=== PATIENT | female | born 1935 | race Caucasian/White ===

== ENCOUNTER 2018-04-17 07:30 | Inpatient (IN) ==
[2018-04-26] MEDS ORDERED: Sodium Chloride 0.9% 2 ML Flush PRN IV.FLUSH (06:13)
[2018-04-26] MEDS ORDERED: Levofloxacin 500 mg Premix Inj 500 MG/100 ML PIGGYBACK IV.SIG SCH (06:15)
[2018-04-26] MEDS ORDERED: Heparin - SQ 10,000 UNITS/ML Vial SQ SCH (06:15)
[2018-04-26] MEDS ORDERED: Chlorhexidine Gluconate 2% 1 Pack (2 Cloths) TOPICAL ONE (06:15)
[2018-04-26] MEDS ORDERED: Metoprolol Tartrate 25 MG Tablet PO ONE (06:15)
[2018-04-26] MEDS ORDERED: Lidocaine 1%/Epinephrine 1:100,000 Inj 50 ML Vial ONE (06:56)
[2018-04-26] MEDS ORDERED: Sugammadex Inj 200 MG/2 ML Vial IV.PUSH ONE (06:57)
[2018-04-26] MEDS ORDERED: Sodium Chlor 0.9% Inj 500 ML IV.SIG SCH (07:00)
[2018-04-26] MEDS ORDERED: Sodium Chlor 0.9% Inj 250 ML IV.CONT ONE (07:07)
[2018-04-26] MEDS ORDERED: Phenylephrine/NS 1000 MCG/10ML Syringe IV.PUSH ONE (07:07)
[2018-04-26] MEDS ORDERED: Lidocaine PF 1% Inj 5 ML Syringe OTHER ONE (07:07)
[2018-04-26] MEDS ORDERED: Sodium Chloride 0.9% 2 ML Flush BID IV.FLUSH SCH (09:00)
[2018-04-26] MEDS ORDERED: RESP: Albuterol Concentrated 2.5 MG/0.5 ML Neb ONE (09:06)
[2018-04-26] MEDS ORDERED: LORazepam 0.5 MG Tablet PO PRN (13:34)
[2018-04-26] MEDS ORDERED: Dextrose 50% in Water 50 ML Vial IV.PUSH PRN (13:36)
[2018-04-26] MEDS ORDERED: *Meperidine Inj 25 MG/ML Vial PERIprocedural Use ONLY ONE (13:43)
[2018-04-26] MEDS ORDERED: fentaNYL Citrate Inj 100 MCG/2 ML Ampul ONE ×2 (13:54→14:40)
[2018-04-26] MEDS ORDERED: KCL 20 mEq/D5W/NaCl 0.45% Inj 1,000 ML ONE (13:59)
[2018-04-26] MEDS ORDERED: *morphine SULFATE 4 MG/ML PERIprocedure ONLY ONE ×3 (14:50→16:36)
[2018-04-26] MEDS: KCL 20 mEq/D5W/NaCl 0.45% Inj 1,000 ML IV.CONT SCH ×2 (15:16)
--- NOTE | 2018-04-26 15:18 | P.CONCC ---
History of Present Illness Service: Critical care Consult date: 04/26/18 Requesting Physician: Belem Alonzo Reason for Consult: Post-operative care s/p ovarian tumor debulking Primary Care Provider: No Primary Care Physician Chief Complaint: None History of Present Illness: 82yF POD # 0 s/p robotic-assisted laparoscopic resection of pelvic mass, bilateral salpingoophorectomy, omentectomy, and tumor debulking. The patient has a history of pelvic mass (either primary peritoneal mass or ovarian CA), carcinomatosis, ascites, and mediastinal adenopathy of uncertain significance who has had 3 rounds of chemotherapy (Taxol, carboplatin, Abraxane) prior to surgery. She had a reported EBL of 150 cc and was extubated without difficulty post-op. I examined the patient in the PACU and she offered no complaints. She specifically denies any pain or nausea. Restoration Technician-onc physician is Dr. Alonzo, med-onc physician is Dr. Garcia. Patient is a full code. Review of Systems All other systems reviewed negative except as stated in HPI Constitutional: Denies chills, Denies fever(s) Eyes: Denies blurry vision Ears, Nose, Mouth, and Throat: Denies sore throat Cardiovascular: Denies chest pain Respiratory: Denies cough Gastrointestinal: Denies abdominal pain, Denies nausea Genitourinary: Denies pelvic pain Musculoskeletal: Denies back pain Neurologic: Denies confusion Psychiatric: Denies confusion PMFSH - History History Provided By: Patient - Medical History Medical History: Medical History (Last Reviewed 04/26/18 @ 16:27 by Verónica Rankin DO) History of chemotherapy Pneumonia Anxiety Bronchitis Carcinoma of omentum Diabetes Full dentures High cholesterol Hypothyroid Neck pain Ovarian ca Port catheter in place - Surgical History Surgical History: Surgical History (Last Reviewed 04/26/18 @ 16:27 by Verónica Rankin DO) History of bladder surgery History of cataract extraction with lens replacement Hx of appendectomy - Social History I have reviewed the patient's Social History: Yes - Tobacco History Second Hand Smoke Exposure: No Smoking Status: Former smoker - Alcohol History How Often Do You Have a Drink Containing Alcohol: Never - Substance Use History Substance History: No History of Abuse Medications and Allergies Active Medications: Active Medications Albuterol (Albuterol Neb (Chau)) 1.25 mg NEB Q6HR NEB CHAU Stop: 04/28/18 14:00 Dextrose (D50w Vial) 50 ml IV.PUSH UNSCH PRN PRN Reason: PER HYPOGLYCEMIA PROTOCOL Diphenhydramine HCl (Benadryl) 25 mg PO Q6H PRN PRN Reason: ITCHING Glucagon (Glucagon Inj) 1 mg OTHER PRN PRN PRN Reason: for Hypoglycemia Protocol Lactated Ringer's (Lr 1000 Ml Inj) 1,000 mls @ 30 mls/hr IV.SIG .Q24H PENDING SALE TO [facility] Stop: 04/27/18 06:14 Last Admin: 04/26/18 06:35 Dose: 30 mls/hr Sodium Chloride (Ns Inj) 500 mls @ 30 mls/hr IV.SIG .Q10H PENDING SALE TO [facility] Last Admin: 04/26/18 06:52 Dose: Not Given Potassium Chloride/Dextrose/Sod Cl (D5w/1/2ns + Kcl 20 Meq Inj) 1,000 mls @ 80 mls/hr IV.CONT .[id number] PENDING SALE TO [facility] Last Admin: 04/26/18 15:16 Dose: 80 mls/hr Insulin Aspart (Novolog Insulin Correctional Sugar Inj) 0 unit SQ Q6HR PENDING SALE TO [facility]; Protocol Ketorolac Tromethamine (Toradol Inj) 15 mg IV.PUSH Q6HR PENDING SALE TO [facility] Stop: 04/27/18 12:01 Levothyroxine Sodium (Synthroid) 50 mcg PO DAILY@0600 PENDING SALE TO [facility] Lorazepam (Ativan) 0.25 mg PO Q8H PRN PRN Reason: ANXIETY Ondansetron HCl (Zofran Inj) 4 mg IV.PUSH Q6H PRN PRN Reason: NAUSEA OR VOMITING Oxycodone/Acetaminophen (Percocet 5/325 Mg) 1 tab PO Q4H PRN PRN Reason: PAIN SCALE 1 TO 5 Oxycodone/Acetaminophen (Percocet 5/325 Mg) 2 tab PO Q4H PRN PRN Reason: PAIN SCALE 6 TO 10 Sodium Chloride (Ns Flush) 2 ml IV.FLUSH BID PENDING SALE TO [facility] Sodium Chloride (Ns Flush) 2 ml IV.FLUSH PRN PRN PRN Reason: FLUSH AFTER USING IV ACCESS Sodium Chloride (Ns Flush) 2 ml IV.FLUSH BID PENDING SALE TO [facility] Sodium Chloride (Ns Flush) 2 ml IV.FLUSH PRN PRN PRN Reason: FLUSH AFTER USING IV ACCESS Allergies Allergy/AdvReac Type Severity Reaction Status Date / Time Penicillins Allergy Intermediate Edema Verified 04/11/18 11:46 Home Medications Medication Instructions Recorded Confirmed Type levothyroxine [Synthroid] 50 mcg PO DAILY 12/19/17 04/26/18 History metformin 500 mg PO BID 12/19/17 04/26/18 History exenatide [Byetta] 5 mcg SUBCUT BID 04/11/18 04/26/18 History Physical Exam Vital signs: Vital Signs 04/26/18 06:30 04/26/18 13:39 04/26/18 13:45 Temperature 98.7 F 97.1 F L Pulse Rate 77 90 86 Respiratory Rate Blood Pressure 134/64 148/67 H 152/65 H Pulse Oximetry 99 100 100 04/26/18 14:00 04/26/18 14:36 Temperature Pulse Rate 75 Respiratory Rate 19 Blood Pressure 134/64 Pulse Oximetry 100 100 Intake & Output 04/25/18 04/26/18 04/26/18 18:59 06:59 18:59 Intake Total 1500 / 1500 Output Total 450 / 450 Balance 1050 / 1050 Weight 53.6 kg Intake: Anesthesia Amount 1500 / 1500 Output: Urine 300 / 300 Estimated Blood Loss 150 / 150 Other: Weight On Admission 53.6 kg Narrative: GEN: Pleasant elderly female lying in bed, appears comfortable, no acute distress HEENT: PERRL, mucosa dry but pink NECK: Trachea midline CARDIO: Regular rate and rhythm PULM: Clear to auscultation bilaterally, no wheezing or rhonchi, no cough noted during exam ABD/GI: Laparoscopic incisions are well-approximated with intact dressings. Abdomen is minimally distended and appropriately tender, no guarding or rebound EXT/MSK: No peripheral edema SKIN: Warm and well-perfused, no rashes or lesions NEURO: Awake and alert, answers questions appropriately, speech clear and fluent , moves all extremities PSYCH: Calm, appropriate affect - Urinary Catheter Management Indwelling Urethral Catheter Cath placed during this visit: yes Reason for continuing: Hourly intake/output Insertion date: 04/26/18 Assessment and Plan - Assessment and Plan Plan: 82yF POD #0 s/p robotic-assisted laparoscopic resection of pelvic mass, bilateral salpingoophorectomy, omentectomy, and tumor debulking NEURO: -Pain control with oxycodone for moderate to severe pain, morphine 2 mg IV PRN breakthrough pain CARDIO: -Cardiac monitoring PULM: Recent history of bronchitis -Extubated post-op without difficulty -Incentive spirometry -Nebs PRN F/E/N: -Regular diet -Maintenance fluids for now (D5 1/2NS + 20 mEq KCl), can likely d/c in AM if patient is tolerating adequate PO intake -Check AM lytes -Will check post-op labs as well as I don't have access to her outpatient pre- op labs; if creat <2, can start ICU electrolyte protocol -Bowel reg HEME/ONC: Pelvic mass s/p resection -EBL 150 mL, will check post-op and AM CBC -Monitor for signs of bleeding or hemodynamic instability ENDO: History of diabetes mellitus History of hypothyroidism -SSI q6h, change to AC/ HS in AM when patient is tolerating adequate PO intake * Hold home meds (metformin, Byetta) -Continue home dose of synthroid MSK: -Out of bed at least to chair in AM PROPHY: -SCDs -PPI -SQH when ok with brick pointer-onc, hold for tonight OVERALL: This patient is stable but requires ICU level of care for close monitoring after extensive abdominopelvic surgery. Thank you for this interesting consult. Our team will follow along while the patient remains in the intensive care unit. Level 3 consult Code Status: Full
[2018-04-26] MEDS ORDERED: Morphine Sulfate Inj 2 MG/ML Vial IV.PUSH PRN (16:33)
[2018-04-26] MEDS ORDERED: *Ondansetron Inj 4 MG/2 ML Vial PERIprocedural Use ONLY ONE (16:36)
[2018-04-26] MEDS: Ketorolac Inj 30 MG/ML (IVP) Vial IV.PUSH SCH (18:30)
[2018-04-26] MEDS: Insulin NovoLOG Aspart Correctional Sugar Inj SQ SCH (18:30)
--- NOTE | 2018-04-26 19:39 | MP ---
cc: Belem Alonzo MD, George DATE OF OPERATION: 04/26/2018 PREOPERATIVE DIAGNOSIS: 1. 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 2. Status post neoadjuvant chemotherapy. POSTOPERATIVE DIAGNOSIS: 1. Primary peritoneal cancer. 2. Status post neoadjuvant chemotherapy. PROCEDURE PERFORMED: Laparoscopic debulking of ovarian tumor with an en bloc resection of the infracolic omentum and partial gastrocolic ligament, bilateral salpingo-oophorectomy, resection of intraperitoneal tumor nodules, extensive lysis of adhesions. SURGEON: Belem Alonzo MD UNIT MANAGER RN: Everette valladaresapartment assistant manager. ANESTHESIA: General endotracheal anesthesia. 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 She also had mediastinal adenopathy and elevated CA-125. Biopsy showed papillary serous adenocarcinoma. She was treated with neoadjuvant Taxol and carboplatin chemotherapy. CA-125, which was initially I believe greater than 1400 was reduced to less than 100. With treatment, the ascites resolved and clinically and radiographically the tumor burden had improved. She was seen and counseled regarding the potential value of interval cytoreductive surgery. She was seen in the preop holding area, accompanied by her son. The findings and plan of care were again reviewed. The potential benefits of surgery, as well as risks and the potential need to convert to laparotomy were all discussed. Questions were asked and answered. She expressed good understanding and would like to move forward with surgical management. FINDINGS: Upon entry into the peritoneal cavity there are areas to suggest good response to chemotherapy. There are small tumor implants essentially on all visceral and parietal peritoneal surfaces ranging anywhere from approximately 1-5 mm. The omentum and grossly visible tumor is adherent to the mid and left anterior abdominal wall and pelvic wall, the right tube and ovary grossly appears normal, may be slightly prominent, but without overt tumor. There is significant diverticulosis and evidence to suggest prior diverticulitis as the colon is plastered to the left pelvic sidewall and requires extensive dissection to mobilize the colon in order to identify and isolate the left tube and ovary which also grossly appeared relatively normal, perhaps with small volume of tumor. The uterus and cervix appeared to be surgically absent. As noted in the abdomen and also in the pelvis were multiple small tumor implants throughout. Each implant that appeared to be 5 mm or greater were few, only a small number of those and these were each resected. The omentum and gastrocolic ligament with grossly visible tumor as well as the tubes and ovaries were all removed accordingly. Accordingly, at the conclusion of the case, the only detectable tumor was that of widespread small 1 to 4 mm implants in the abdomen and pelvis that were on the surface of the large and small bowel, the mesentery of the liver and the diaphragm. STATEMENT OF COMPLEXITY/MODIFIER: The adhesions were extensive and estimated 90 minutes of operative time was required to lyse adhesions to gain safe exposure into the peritoneal cavity, to restore normal anatomy and to accomplish surgical objectives. Modifier should be applied accordingly. DESCRIPTION OF PROCEDURE: She was taken to the operating room and placed in dorsal lithotomy position, after general endotracheal anesthesia was administered. A timeout was undertaken. She was identified by site recognition and hospital ID bracelet and the proposed procedure was reviewed and confirmed. She was carefully positioned in padded Jordan stirrups. Her arms were padded and secured to the sides. She was further secured to the operating table with egg crate padding and tape in crossed chest over the shoulder fashion. All sites noted to be properly aligned with no malalignment or pressure points. She was prepped in sterile fashion and draped below the waist, Marroquin catheter was placed in the bladder. Sponge stick placed in the vagina for manipulation. We completed draping in anticipation of laparoscopy confirmed that an orogastric tube was in the stomach on suction and prep with manual elevation of the abdominal wall and direct laparoscopic visualization. A 5 mm cannula was introduced into the left upper quadrant. Carbon dioxide gas was insufflated and an atraumatic entry was confirmed. There was an opening in the right upper quadrant that allowed entry of an 8 mm cannula and from this access, initiation of any lysis of adhesions were carried out to start mobilizing the omentum and adjacent structures that were densely adherent to the abdominal wall. After freeing an adequate space in the midline, a 12 mm cannula was placed in the midline above the umbilicus and further lysis of adhesions was carried out with sharp and blunt dissection. Once the left upper quadrant was cleared satisfactorily an 8 mm cannula was placed in the left lateral upper abdominal quadrant and the original 5 mm cannula exchanged for an 8 mm cannula. Further sharp and blunt dissection with focal cautery were used to take down more of the omentum. She was placed in Trendelenburg position. The anatomy was surveyed with findings as described above. Three Ray-Mitra sponges were placed in the peritoneal cavity. The omentum and tumor were left adherent to the anterior abdominal wall to assist in retraction to facilitate resection of this tumor. The robotic system was brought into the operative field, attached in the usual fashion. Monopolar scissors, fenestrated bipolar forceps and ProGrasp manipulators were placed in arms #1, 2, and 3 respectively and I took my place at the surgeon console. Starting near the hepatic flexure, nonvascular attachments to the colon were taken down with sharp dissection. Vascular attachments were isolated, cauterized, and transected in a stepwise fashion. The serosal irritation in the colon was noted. Instruments were exchanged for needle drivers as a 3-0 Vicryl suture was introduced and interrupted imbricating 3-0 Vicryl suture was used to reinforce an area of serosal defect in the colon. There was no colotomy and no disruption to the bowel wall and these 3-0 Vicryl sutures were closed securely which inverted the area of the serosa that required repair. The needle was cut and removed. Instruments were returned. Dissection was continued across the transverse colon in the mid portion, there was tumor that clearly extended into the gastrocolic ligament, so the vascular attachments and the gastrocolic ligament were isolated, cauterized and transected. Dissection was continued toward the transverse colon in a stepwise fashion with sharp dissection and focal cautery. Dissection was initiated near the splenic flexure where nonvascular attachments of the transverse colon and proximal descending colon were taken down with sharp dissection. Vascular attachments taken down were and isolated with bipolar cautery and transected. This was continued in a stepwise fashion, dissecting toward the midpoint of the transverse colon until the entire infracolic omentum and a significant portion of the gastrocolic ligament were en bloc removed from their anatomical attachments. Now, this tissue with its tumor could be taken down through the anterior abdominal wall. With blunt and sharp dissection and focal cautery this was taken down from the anterior abdominal and pelvic wall, thereby removing this tissue and tumor, placing it in the right pericolic gutter for later retrieval. Inspection was carried out. Any implant that was greater than 5 mm was resected sharply and this only represented perhaps 4 implants of this size which were resected. The remainder were quite small as described above. These tumor implants were placed in the right pericolic gutter for later retrieval. The right round ligament was identified, isolated, cauterized, and transected. The anterior and posterior leafs of the broad ligament were opened. The right ureter was identified. The right infundibulopelvic ligament was isolated, the intervening peritoneum was opened and the infundibulopelvic ligament was cauterized and transected. The dissection was carried out to isolate the right residual utero-ovarian ligament, which was then cauterized and transected, thereby removing the right tube and ovary which was placed in the right pericolic gutter for later retrieval. The left pelvic sidewall required a great deal of attention due to the extensive adhesions. There was significant diverticulum and dense adhesions suggesting prior diverticulitis. The retroperitoneal dissection was carried out along the white line of Toldt to help mobilize the colon. This was continued until the colon could be moved medially and a retroperitoneal dissection was continued. The residual left round ligament was isolated, cauterized, and transected. Dissection was further carried out, as the fixation precluded early identification of the tube and ovary, which were eventually isolated after more adhesions were taken down and the colon was further mobilized and then the retroperitoneal space was further developed. The left ureter was identified. The left infundibulopelvic ligament was isolated. The intervening peritoneum was opened. Dissection was carried distally until the left uteroovarian ligament was isolated, which was then cauterized and transected. Tube and ovary were elevated as dissection was carried out proximally to isolate the gonadal vessels and the infundibulopelvic ligament was then cauterized thoroughly and transected, thereby removing the left tube and ovary, which were placed in the right pericolic gutter for later retrieval. Pelvis and abdomen were thoroughly irrigated. Small bleeders were rendered hemostatic with bipolar cautery. Santana hemostatic agent was placed across the pelvic sidewall and posterior dissection beds as well as some across the transverse colon. All sites were noted to be hemostatic. The anatomy was surveyed with minimal yet multifocal numerous small implants of tumor that persisted, but any significant isolated tumor had been reduced to less than 5 mm. It was felt that all reasonable surgical objectives had been completed. Robotic instruments were removed. The robotic system was disengaged from the operative field. I reentered the bedside under sterile condition. A 12 cm EndoCatch bag was used to capture the right and left tube and ovary as well as the peritoneal implants. They were brought out through the abdominal wall, captured in the EndoCatch bag through the 12 mm cannula and labeled appropriately. Next, the fascial incision was extended and the 12 mm incision and a 15 mm cannula was introduced. The omentum and gastrocolic ligament with tumor were placed in the EndoCatch bag and brought to the abdominal wall and were able to be delivered with countertraction using ring forceps until this entire specimen was delivered. Each of the 3 Ray-Mitra sponges that were in the peritoneal cavity were isolated, each were grasped and removed individually. Each were inspected and noted to be removed in their entirety. Visual inspection confirmed that all sites were hemostatic. There were no remaining foreign objects in the peritoneal cavity. Preliminary counts were correct. The supraumbilical fascial incision was closed with interrupted 0 Vicryl sutures using a needle fascial closure apparatus. They were tied securely, which rendered the fascia completely airtight and hemostatic. The remaining cannulas were withdrawn. Carbon dioxide gas was removed from the peritoneal cavity; 3-0 Vicryl subcutaneous, 3-0 Vicryl subcuticular and Steri-Strips were used to close these incisions. Final counts were correct. She was returned to dorsal supine position. The vaginal manipulator was removed. Final counts were correct. There were no remaining foreign objects in the vagina and she was returned to dorsal supine position pending reversal of anesthesia and I left the operating room to precede her to the postanesthesia care unit. MD ANTONIO Willoughby/monica , 06:40 PM , 07:03 PM
[2018-04-26] MEDS ORDERED: Senna/Docusate Sodium 8.6/50 MG Tablet PO SCH (21:00)
[2018-04-26 21:46] LABS: Baso % (Auto) 0.1 % (0.0-2.0); Hematocrit 28.8 % (35.0-46.0); Hemoglobin 9.5 gm/dL (11.6-15.3); Lymph # (Auto) 1.1 th/mm3 (1.0-4.8); Mean Corpuscular Hemoglobin 28.7 pg (27.0-34.0); Mono # (Auto) 0.5 th/mm3 (0.0-0.9); Mono % (Auto) 6.3 % (0.0-8.0); Neut # (Auto) 6.1 th/mm3 (1.8-7.7); Neut % (Auto) 79.6 % (16.0-70.0); Platelet Count 228 th/mm3 (150-450); Red Blood Count 3.31 mil/mm3 (4.00-5.30); Red Cell Distribution Width 18.7 % (11.6-17.2); White Blood Count 7.6 th/mm3 (4.0-11.0)
[2018-04-26 22:01] LABS: Alanine Aminotransferase 10 U/L (10-53); Albumin 2.7 g/dL (3.4-5.0); Anion Gap 9 meq/L (5-15); Aspartate Aminotransferase 6 U/L (15-37); Blood Urea Nitrogen 15 mg/dL (7-18); Calcium 8.8 mg/dL (8.5-10.1); Carbon Dioxide 25.6 meq/L (21.0-32.0); Chloride 99 meq/L (98-107); Glomerular Filtration Rate 62 mL/min (>89); Glucose,Random 264 mg/dL (74-106); Magnesium 1.7 mg/dL (1.5-2.5); Potassium 4.4 meq/L (3.5-5.1); Sodium 134 meq/L (136-145)
[2018-04-26 22:04] LABS: Alkaline Phosphatase 84 U/L (45-117); Total Protein 6.9 g/dL (6.4-8.2)
[2018-04-27] MEDS: Insulin NovoLOG Aspart Correctional Sugar Inj SQ SCH ×2 (00:33→06:13)
[2018-04-27] MEDS: KCL 20 mEq/D5W/NaCl 0.45% Inj 1,000 ML IV.CONT SCH (02:05)
[2018-04-27] MEDS: Ketorolac Inj 30 MG/ML (IVP) Vial IV.PUSH SCH ×2 (02:06→06:13)
[2018-04-27 04:21] LABS: Baso % (Auto) 0.2 % (0.0-2.0); Hematocrit 29.2 % (35.0-46.0); Hemoglobin 9.6 gm/dL (11.6-15.3); Lymph # (Auto) 1.4 th/mm3 (1.0-4.8); Lymph % (Auto) 14.6 % (9.0-44.0); Mean Corpuscular HGB Conc 32.9 % (32.0-36.0); Mean Corpuscular Hemoglobin 28.9 pg (27.0-34.0); Mean Corpuscular Volume 87.7 fL (80.0-100.0); Mean Platelet Volume 7.3 fL (7.0-11.0); Mono # (Auto) 0.7 th/mm3 (0.0-0.9); Mono % (Auto) 7.8 % (0.0-8.0); Neut # (Auto) 7.2 th/mm3 (1.8-7.7); Neut % (Auto) 77.4 % (16.0-70.0); Platelet Count 238 th/mm3 (150-450); Red Blood Count 3.33 mil/mm3 (4.00-5.30); Red Cell Distribution Width 18.5 % (11.6-17.2); White Blood Count 9.3 th/mm3 (4.0-11.0)
[2018-04-27 04:43] LABS: Calcium 8.8 mg/dL (8.5-10.1); Carbon Dioxide 26.8 meq/L (21.0-32.0); Potassium 4.4 meq/L (3.5-5.1)
[2018-04-27] MEDS ORDERED: Levothyroxine 50 MCG Tablet PO SCH (06:00)
[2018-04-27 06:22] VITALS: O2SAT 99
--- NOTE | 2018-04-27 08:05 | MD ---
cc: Belem Alonzo MD, George DATE OF DISCHARGE: 04/27/2018 PROCEDURE: 04/26/2018, robotic-assisted laparoscopic en bloc resection of omentum and gastrocolic ligament with resection of extensive tumor in the intraperitoneal cavity, extensive lysis of adhesions, bilateral salpingo-oophorectomy (debulking of primary peritoneal cancer). HOSPITAL COURSE: She did well in the early postop period. She remained in the PACU overnight as there were no beds in the intensive care unit. Intensive care unit was recommended just given her age, the extent of her surgery, her underlying COPD, and recent recovery from pneumonia. She did amazingly well overnight, had no problems. She was never short of breath. No chest pain. Her oxygen saturations were good. Ins and outs 3489/2050. Labs this morning show an H and H of 9.6 and 29.2. Electrolytes essentially normal. BUN and creatinine 12 and 0.69. PHYSICAL EXAMINATION: VITAL SIGNS: Afebrile, pulse 72-74, respirations 14-16, blood pressure 138/59, O2 saturations greater than or equal to 98%. GENERAL: Alert and oriented x 3, no acute distress. LUNGS: Clear. Mild basilar rales. CARDIOVASCULAR: Regular rate and rhythm. ABDOMEN: Soft. Incisions clean and dry. GYNECOLOGIC: No bleeding. ASSESSMENT: Postoperative day number. Findings at the time of surgery with the steps taken and overall description of the extent of disease were reviewed. Activities and restrictions discussed. Questions were asked and answered. She expressed good understanding. PLAN: She feels well and requested to be able to go home today. We will assess her this morning to ensure that she can void without difficulty now that the Marroquin catheter was removed. Make sure she tolerates oral intake, make sure she is steady on her feet. If in fact she meets criteria, she will be able to go home today. She is to resume her prior medications. She will have a prescription for Percocet for pain. I spoke with her son yesterday who is going to stay in town. He is visiting from out of state. He is going to stay in town for a while to help take care of her. We also have home health already involved to assist at home as well. She is to call our office to schedule a followup in 2 weeks or to contact our office should she have any questions or problems. Our office number is again made available. MD ANTONIO Willoughby/candido , 07:26 AM , 07:33 AM
[2018-04-27 09:07] VITALS: BP 160/68; PULSE 78; RESP 16; TEMP 97.7
== END 2018-04-27 09:25 | disposition home health service (06) | DRG 336 ==
LOC: HSDI 04-26 05:29 → HPAC 04-27 00:41
PROVIDERS: ADMIT Obstetrics & Gynecology Gynecologic Oncology; ATTEND Obstetrics & Gynecology Gynecologic Oncology
CPT/HCPCS: 80048; 80053; 82948; 82962; 83735; 85025; 86850; 86900; 86901; 86923; 88305; 88307; 94150; 94640; 94664; 94665; J0131; J1100; J1644; J1815; J1885; J1956; J2175; J2250; J2270; J2370; J2405; J2704; J3010; J3480; J7050; J7120